=== PATIENT | female | born 1955 | race Caucasian/White ===

== ENCOUNTER 2018-01-08 13:53 | Emergency (ER) | payer BC, OTHER ==
[~2018-01-08] VITALS: Ht 162.6 cm; Wt 93.0 kg
[~2018-01-08 13:53] MED LIST: FLUTICASONE PRO16 GM NAS; OMEPRAZOLE40 MG PO
[2018-01-08] MEDS ORDERED: ONDANSETRON ODT8 MG PO (15:25)
--- NOTE | 2018-01-09 11:33 | EKG ---
[facility] [address] [facility] [place], [place] [address] Signed Normal sinus rhythm Possible Left atrial enlargement Anteroseptal infarct , age undetermined Abnormal ECG No previous ECGs available Confirmed by DMITRI WINTERS MD ([id number]) on 01/09/2018 11:33:07 AM Electronically Signed By: DMITRI WINTERS MD 01/09/18 1133 PATIENT NAME: TIGIST GALLARDO Electrocardiogram DATE OF : 57 PHYSICIAN: DMITRI WINTERS MD REPORT #: [id number] REPORT IS CONFIDENTIAL AND NOT TO BE RELEASED WITHOUT AUTHORIZATION
== END 2018-01-08 15:40 | disposition home or self-care (01) ==
LOC: ED 13:53
DX: R42 Dizziness and giddiness (principal); H83.09 Labyrinthitis, unspecified ear
CPT/HCPCS: 80053; 84484; 85025; 93005; 93010; 96360; 99284; J7030

== ENCOUNTER 2020-04-02 07:57 | Day surgery (SDC) | payer BC, OTHER ==
[~2020-04-02] VITALS: Ht 162.6 cm; Wt 93.2 kg
--- NOTE | ~2020-04-02 | OR ---
[facility] [address] [place], [place] [address] Draft DATE OF OPERATION: 04/02/2020 SURGEON: Pollo Herrera MD PREOPERATIVE DIAGNOSIS: Nasal obstruction due to septal deformity and inferior turbinate hypertrophy. 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 PROCEDURE: Septoplasty, cautery of bilateral inferior turbinates. ANESTHESIA: General LMA. SUPERVISOR HAND SILVERING: Brianne. PREOPERATIVE HISTORY: Tigist is a 65-year-old lady with nasal obstruction caused by inferior turbinate hypertrophy and septal deformity, unresponsive to appropriate medications. She is taken to the operating room for the above-mentioned procedures. OPERATIVE PROCEDURE AND FINDINGS: After informed consent, the patient was taken to the operating room, placed in supine position where general LMA anesthesia was induced. The patient and procedure were verified. The patient was repositioned. The patient received preoperative intravenous Ancef and intranasal oxymetazoline. Headlight speculum exam of the nasal cavity showed a septal deformity, right side of large spur extending posteriorly obstructive. The inferior turbinates were decongested. The septal mucosa on the right side was injected with 1% lidocaine with epi. The mucosa was elevated off the deviated septal bone and cartilage with a Victorina elevator and the deviated cartilage was removed with the Kj. Airway was improved. Septum medialized in this manner, minimal bleeding. The inferior turbinates were then cauterized with a long handle needle point cautery starting on the right side. Multiple transmucosal passes on the medial and inferior surface of the inferior turbinate extending anteriorly all the way back posteriorly. Excellent decongestion and shrinkage of the turbinate were obtained. Same procedure on the left inferior turbinate, minimal bleeding stopped afterwards. Packing was placed, PATIENT NAME: TIGIST GALLARDO OPERATIVE REPORT DATE OF : 57 REPORT #: [id number] PHYSICIAN: POLLO HERRERA MD PCP: ANAMARIA JOSEPH REPORT IS CONFIDENTIAL AND NOT TO BE RELEASED WITHOUT AUTHORIZATION [facility] [address] [place], [place] [address] Draft trimmed Merocel equal amount, each side coated with Neosporin, tied anteriorly over a pad. The pharynx was suctioned, clear of blood secretions. The patient was then awakened, extubated, transported to the recovery room in good condition. No complications. BLOOD LOSS: Minimal. SPECIMEN: No specimen. DRAINS: No drains. PACKING: One piece of Merocel in each nostril. Pollo Herrera MD /GÉNESISL /[id number] Copies: ~ PATIENT NAME: TIGIST GALLARDO OPERATIVE REPORT DATE OF : 57 REPORT #: [id number] PHYSICIAN: POLLO HERRERA MD PCP: ANAMARIA JOSEPH REPORT IS CONFIDENTIAL AND NOT TO BE RELEASED WITHOUT AUTHORIZATION
[~2020-04-02 07:57] MED LIST changes: +ONDANSETRON ODT8 MG PO; +ZESTRIL10 MG PO
--- NOTE | 2020-04-02 10:30 | NUR ---
04/02/20 1030 Joelle Mann 1006 PT ARRIVED IN PACU NON RESPONSIVE TO NOXIOUS STIMULI WITH OPA IN PLACE. 1022 PT REACTIVE. OPA REMOVED. 1030 OXYGEN REMOVED. SATS 96% ON RA. TAKING SIPS OF WATER.
--- NOTE | 2020-04-02 10:50 | NUR ---
PATIENT BACK IN DAY SURGERY ROOM FROM PACU. DENIES PAIN. NASLA PACKING AND MOUSTACHE DRESSING IN PLACE. BOTH ARE CLEAN, DRY AND INTACT. IV SITE WNL. VS CHECKED. SCDs ON. CALL LIGHT WITHIN REACH. PATIENT TOLERATING ICE WATER. DECLINES SOMETHING TO EAT AT THIS TIME.
--- NOTE | 2020-04-02 12:31 | NUR ---
1145: PATIENT ASSISTED OOB AND TO BATHROOM. GAIT STEADY. VOID WITHOUT DIFFICULTY. GAIT STEADY BACK TO ROOM. VS CHECKED. AT BEDSIDE. 1205: IV DC'D WNL. TIP INTACT. DRESSING APPLIED. DISCHARGE INSTRUCTIONS GIVEN TO PATIENT AND . PATIENT ASSISTED TO GET DRESSED. 1215: ANTIBIOTIC PRESCRIPTION CALLED IN TO [facility] PER PATIENT REQUEST. PATIENT DISCHARGED TO HOME VIA WHEELCHAIR WITH .
== END 2020-04-02 12:15 | disposition home or self-care (01) ==
LOC: OPS 07:57 → DS 07:57 → OPS 09:30 → DS 09:30 → OPS 12:15
PROVIDERS: ATTEND Otolaryngology
PROC: 095L0ZZ Destruction of Nasal Turbinate, Open Approach (ICD-10-PCS; 2020-04-02)
PROC: 09JY8ZZ Inspection of Sinus, Via Natural or Artificial Opening Endoscopic (ICD-10-PCS; principal; 2020-04-02 09:30)
PROC: 09BM0ZZ Excision of Nasal Septum, Open Approach (ICD-10-PCS; 2020-04-02 09:30)
DX: J34.2 Deviated nasal septum (principal); J34.3 Hypertrophy of nasal turbinates; J34.89 Other specified disorders of nose and nasal sinuses; H81.10 Benign paroxysmal vertigo, unspecified ear; I10 Essential (primary) hypertension; J30.9 Allergic rhinitis, unspecified; Z88.2 Allergy status to sulfonamides; Z79.899 Other long term (current) drug therapy; Z91.048 Other nonmedicinal substance allergy status
CPT/HCPCS: J0690; J1100; J1885; J2001; J2250; J2405; J2704; J7121

== ENCOUNTER 2021-09-29 07:20 | Day surgery (SDC) | payer MEDICARE, OTHER ==
[~2021-09-29] VITALS: Ht 162.6 cm; Wt 93.2 kg
--- NOTE | ~2021-09-29 | OR ---
[facility] [address] [place], [place] [address] Draft DATE OF OPERATION: 09/29/2021 SURGEON: Hitesh Dean MD PREOPERATIVE DIAGNOSES: 1. Family history of colon cancer in maternal grandfather. 2. Last colonoscopy normal in 2017. POSTOPERATIVE DIAGNOSIS: Normal colon to cecum. PROCEDURE: Total colonoscopy to cecum. ANESTHESIA: Intravenous sedation; fentanyl 100 mcg and Versed 5 mg. INDICATION: This 66-year-old white woman is a patient of WOLF Olivares. She is known to me from the past having undergone colonoscopy in 2017, which was normal. She has no symptoms currently of bleeding, diarrhea, constipation, but does have family history of colon cancer in her maternal grandfather. She is admitted to undergo colonoscopy. She understands the risks of bleeding, infection, and perforation. FINDINGS: The prep was excellent. Complete colonoscopy was undertaken. The cecum without question with full intubation of the cecum. There was no evidence of polyps, diverticular formation, colitis, or cancer. DESCRIPTION OF PROCEDURE: The patient was brought to the endoscopy suite and placed in lateral decubitus position, given intravenous sedation to the point of slurred speech and nystagmus. Digital rectal examination was normal. An Olympus video colonoscope was passed in the rectum and manipulated throughout the colon ultimately intubating the cecum itself. The ileocecal valve and appendiceal orifice were normal. Photographs were taken. The scope was withdrawn and examination throughout showed no sign of abnormality specifically no polyps, diverticular formation, colitis, or cancer. Retroflexed view was normal. Scope was removed. The patient was taken to the recovery room in good condition. PATIENT NAME: TIGIST GALLARDO OPERATIVE REPORT DATE OF : 57 REPORT #: [id number] PHYSICIAN: HITESH DEAN MD PCP: ANAMARIA CASTELLANOS REPORT IS CONFIDENTIAL AND NOT TO BE RELEASED WITHOUT AUTHORIZATION [facility] [address] [place], [place] [address] Draft CONCLUSION DIAGNOSIS: Normal colon to cecum. PLAN: Recommend repeat colonoscopy in 7 years based on 2nd degree family history (maternal grandfather), sooner if symptoms should occur. She will return to the ongoing care of Anamaria Castellanos. MD SAMIR Rose/GÉNESISL /[id number] cc: WOLF Olivares Copies: ANAMARIA CASTELLANOS ~ PATIENT NAME: TIGIST GALLARDO OPERATIVE REPORT DATE OF : 57 REPORT #: [id number] PHYSICIAN: HITESH DEAN MD PCP: ANAMARIA CASTELLANOS REPORT IS CONFIDENTIAL AND NOT TO BE RELEASED WITHOUT AUTHORIZATION
[~2021-09-29 07:20] MED LIST changes: +BENZONATATE100 MG PO; +ONE DAILY MULT PO; +VALACYCLOVIR1000 MG PO
--- NOTE | 2021-09-29 09:23 | NUR ---
09/29/21 09 Leah Rodriguez 19- PT TO PACU IN LL POSITION. EYES CLOSED. AWAKENS EASILY TO VERBAL STIMULI. PT DENIES PAIN AND FALLS QUICKLY BACK TO SLEEP. BREATHING EASY AND UNLABORED. SPO2 >95% ON 3 L O2 VIA NC. PT ENCOURAGED TO PASS GAS. 922- PT SLEEPING COMFORTABLY. BREATHING EASY AND UNLABORED. SPO2 >95% ON 3 L O2 VIA NC.
== END 2021-09-29 10:00 | disposition home or self-care (01) ==
LOC: OPS 07:20 → DS 07:20 → OPS 08:30
PROVIDERS: ATTEND Surgery
PROC: 0DJD8ZZ Inspection of Lower Intestinal Tract, Via Natural or Artificial Opening Endoscopic (ICD-10-PCS; principal; 2021-09-29 08:30)
DX: Z12.11 Encounter for screening for malignant neoplasm of colon (principal); Z80.0 Family history of malignant neoplasm of digestive organs; I10 Essential (primary) hypertension; Z88.2 Allergy status to sulfonamides; Z86.16 Personal history of COVID-19; Z90.49 Acquired absence of other specified parts of digestive tract; Z90.711 Acquired absence of uterus with remaining cervical stump; Z98.890 Other specified postprocedural states
CPT/HCPCS: J2250; J3010